=== PATIENT | female | born 1950 | race Caucasian/White ===

== ENCOUNTER 2020-10-17 13:34 | Inpatient (IN) | payer BC, MEDICAID ==
[~2020-10-17] VITALS: Ht 149.9 cm; Wt 129.0 kg
[2020-10-17 14:13] LABS: Basophils # (auto) 0.1 10 ^3/uL (0-0.2); Basophils % (auto) 0.4 % (0.0-2.0); Eosinophils # (auto) 0.2 10 ^3/uL (0-0.8); Eosinophils % (auto) 1.4 % (0.0-7.0); Hematocrit 36.2 % (36.0-46.0); Lymphocytes # (auto) 1.3 10 ^3/uL (0.4-5.4); Lymphocytes % (auto) 7.8 % (10.0-50.0); Mean Corpuscular Hemoglobin 30.9 pg (28.0-32.0); Mean Corpuscular Hgb Conc. 33.2 g/dL (32.0-36.0); Mean Corpuscular Volume 93.2 fL (80.0-100.0); Monocytes # (auto) 0.8 10 ^3/uL (0-1.3); Monocytes % (auto) 4.6 % (0.0-12.0); Neutrophils % (auto) 85.8 % (37.0-80.0); Nucleated Red Blood Cells % 0.1 %; Red Blood Cells 3.88 10^6/uL (4.0-5.20); Red Cell Distribution Width 13.6 % (11.8-14.3); White Blood Cell 16.4 10^3/uL (4.4-10.8)
[2020-10-17] MEDS ORDERED: PROMETHAZINE HCL 25 MG/ML 1ML IV PRN (14:15)
[2020-10-17] MEDS ORDERED: HYDROmorphone HCL 2 MG/ML VL IV ONE (14:15)
[2020-10-17] MEDS ORDERED: SODIUM CHLORIDE 0.9% 1,000 ML IV ONE (14:15)
[2020-10-17 14:27] LABS: Anion Gap 7 (5-15); Blood Urea Nitrogen 30 mg/dL (7-18); Carbon Dioxide 24 mmol/L (21-32); Chloride 109 mmol/L (98-107); Glucose 108 mg/dL (74-106); Potassium 3.7 mmol/L (3.5-5.1); Sodium 140 mmol/L (136-145)
[2020-10-17 14:28] LABS: Albumin 2.9 g/dL (3.4-5.0); Amylase 47 U/L (25-115); BUN/Creatinine Ratio 18.8; Calcium 8.4 mg/dL (8.5-10.1); GFR African American 41 mL/min; GFR Non-African American 34 mL/min; Lipase 104 U/L (73-393); Magnesium 1.8 mg/dL (1.6-2.6)
[2020-10-17 14:32] LABS: Alanine Aminotransferase 13 U/L (13-56); Alkaline Phosphatase 67 U/L (45-117); Aspartate Aminotransferase 12 U/L (15-37); Bilirubin, Total 0.5 mg/dL (0.2-1.0)
[2020-10-17 15:22] LABS: INR 1.08 (0.9-1.15); Partial Thromboplastin Time 29.9 sec (23.0-31.2)
[2020-10-17] MEDS ORDERED: metroNIDAZOLE 500MG/100ML 100 ML IV ONE (15:45)
[2020-10-17] MEDS ORDERED: cefTRIAXone 1GM/50ML D5W 50 ML IV ONE (15:45)
[2020-10-17] MEDS ORDERED: DOCUSATE SOD 100 MG CAP PO PRN (17:15)
[2020-10-17] MEDS ORDERED: ONDANSETRON HCL 4 MG/2 ML VIAL IV PRN (17:15)
[2020-10-17] MEDS ORDERED: NITROGLYCERIN 0.4 MG SL TAB SL PRN (17:15)
[2020-10-17] MEDS ORDERED: HYDROcodone-ACET 5/325MG TAB PO PRN (17:15)
[2020-10-17] MEDS ORDERED: ACETAMINOPHEN 500 MG TAB PO PRN (17:15)
[2020-10-17] MEDS ORDERED: MORPHINE SULFATE INJECTION 2 MG/ML SYRG IV PRN ×2 (17:15)
[2020-10-17] MEDS: SODIUM CHLORIDE 0.9% 1,000 ML IV SCH (17:38)
[2020-10-17] MEDS: metroNIDAZOLE 500MG/100ML 100 ML IV SCH (20:01)
[2020-10-17 20:50] VITALS: BP 110/69
[2020-10-18] VITALS (7 sets, daily range): BP systolic 107–136; BP diastolic 50–71
[2020-10-18] MEDS ORDERED: NITR100C6 PO (01:17)
[2020-10-18] MEDS ORDERED: LORA-622 PO (01:17)
[2020-10-18] MEDS ORDERED: SIMV-13 PO (01:17)
[2020-10-18] MEDS ORDERED: LEVO175T2 PO (01:17)
[2020-10-18] MEDS ORDERED: FLUO-125 PO (01:17)
[2020-10-18] MEDS ORDERED: LOSA-39 PO (01:17)
[2020-10-18] MEDS: SODIUM CHLORIDE 0.9% 1,000 ML IV SCH ×2 (01:28→08:25)
[2020-10-18] MEDS: metroNIDAZOLE 500MG/100ML 100 ML IV SCH ×2 (06:24→14:07)
[2020-10-18] MEDS ORDERED: LEVOTHYROXINE SODIUM 100 MCG TAB PO SCH (07:00)
[2020-10-18] MEDS ORDERED: cefTRIAXone 1GM/50ML D5W 50 ML IV SCH (09:00)
[2020-10-18 09:13] LABS: Urine Bacteria FEW /hpf (None Seen); Urine Blood TRACE /uL (Negative); Urine Hyaline Cast FEW /lpf (0 - 2); Urine Specific Gravity 1.013 (1.001-1.035); Urine WBC 15 /hpf (0 - 5)
[2020-10-18] MEDS ORDERED: LOSARTAN POTASSIUM 25 MG TAB PO SCH (10:00)
[2020-10-18] MEDS ORDERED: FLUoxetine HCL 20 MG CAP PO SCH (10:00)
[2020-10-18] MEDS ORDERED: FAMOTIDINE 20 MG TAB PO SCH (10:00)
[2020-10-18 11:46] LABS: Basophils # (auto) 0 10 ^3/uL (0-0.2); Basophils % (auto) 0.5 % (0.0-2.0); Eosinophils # (auto) 0.5 10 ^3/uL (0-0.8); Eosinophils % (auto) 6.3 % (0.0-7.0); Hematocrit 34.4 % (36.0-46.0); Hemoglobin 11.4 g/dL (12.2-16.2); Lymphocytes # (auto) 2.1 10 ^3/uL (0.4-5.4); Lymphocytes % (auto) 24.6 % (10.0-50.0); Mean Corpuscular Hemoglobin 31.1 pg (28.0-32.0); Mean Corpuscular Hgb Conc. 33.1 g/dL (32.0-36.0); Mean Corpuscular Volume 93.9 fL (80.0-100.0); Monocytes # (auto) 0.6 10 ^3/uL (0-1.3); Monocytes % (auto) 6.9 % (0.0-12.0); Neutrophils # (auto) 5.3 10 ^3/uL (1.6-8.6); Neutrophils % (auto) 61.7 % (37.0-80.0); Red Blood Cells 3.66 10^6/uL (4.0-5.20); Red Cell Distribution Width 13.6 % (11.8-14.3); White Blood Cell 8.7 10^3/uL (4.4-10.8)
[2020-10-18 12:05] LABS: Calcium 8.2 mg/dL (8.5-10.1); Potassium 3.6 mmol/L (3.5-5.1)
[2020-10-18 12:07] LABS: BUN/Creatinine Ratio 16.8
== END 2020-10-18 16:55 | disposition home or self-care (01) | DRG 871 ==
LOC: EDBD 13:34 → ER 13:34 → TELE 17:13 → TELE-EAST 20:50 → TELE-CENTR 10-18 16:08
PROVIDERS: ADMIT Nurse Practitioner Acute Care; ATTEND Internal Medicine
DX: A41.9 Sepsis, unspecified organism (principal); N17.0 Acute kidney failure with tubular necrosis; E44.0 Moderate protein-calorie malnutrition; K57.32 Diverticulitis of large intestine without perforation or abscess without bleeding; N39.0 Urinary tract infection, site not specified; E11.22 Type 2 diabetes mellitus with diabetic chronic kidney disease; Z20.822 Contact with and (suspected) exposure to COVID-19; F32.9 Major depressive disorder, single episode, unspecified; M10.9 Gout, unspecified; E03.9 Hypothyroidism, unspecified; E66.9 Obesity, unspecified; E78.5 Hyperlipidemia, unspecified; I12.9 Hypertensive chronic kidney disease with stage 1 through stage 4 chronic kidney disease, or unspecified chronic kidney disease; J45.909 Unspecified asthma, uncomplicated; N18.9 Chronic kidney disease, unspecified; Z85.850 Personal history of malignant neoplasm of thyroid; Z90.49 Acquired absence of other specified parts of digestive tract; Z68.35 Body mass index [BMI] 35.0-35.9, adult
CPT/HCPCS: 36415; 71046; 74176; 80048; 80053; 81001; 82150; 83690; 83735; 84443; 84484; 85025; 85610; 85730; 87426; 93005; 96361; 96365; 96375; G0378; J0696; J3490

== ENCOUNTER 2022-07-29 16:40 | Emergency (ER) | payer OTHER, MEDICAID ==
[~2022-07-29] VITALS: Ht 157.5 cm; Wt 110.0 kg
[~2022-07-29 16:40] MED LIST: FLUO-125 PO; LEVO175T2 PO; LORA-622 PO; LOSA-39 PO; NITR100C6 PO; SIMV-13 PO
[2022-07-29 19:51] LABS: Basophils # (auto) 0.1 10 ^3/uL (0-0.2); Eosinophils # (auto) 0.5 10 ^3/uL (0-0.8); Hemoglobin 13.5 g/dL (12.2-16.2); Lymphocytes # (auto) 3.5 10 ^3/uL (0.4-5.4); Mean Corpuscular Hemoglobin 29.8 pg (28.0-32.0); Mean Corpuscular Hgb Conc. 32.1 g/dL (32.0-36.0); Mean Corpuscular Volume 93.1 fL (80.0-100.0); Monocytes # (auto) 0.6 10 ^3/uL (0-1.3); Monocytes % (auto) 7.1 % (0.0-12.0); Neutrophils # (auto) 4.3 10 ^3/uL (1.6-8.6); Neutrophils % (auto) 47.9 % (37.0-80.0); Nucleated Red Blood Cells % 0.2 %; Red Blood Cells 4.51 10^6/uL (4.0-5.20); Red Cell Distribution Width 13.6 % (11.8-14.3)
[2022-07-29 20:05] LABS: Albumin 3.4 g/dL (3.4-5.0); BUN/Creatinine Ratio 28.5; Calcium 9.6 mg/dL (8.5-10.1); Potassium 3.9 mmol/L (3.5-5.1)
[2022-07-29 20:07] LABS: Bilirubin, Total 0.3 mg/dL (0.2-1.0); Total Protein 6.9 g/dL (6.4-8.2)
[2022-07-29] MEDS ORDERED: cloNIDine HCL 0.1 MG TAB PO ONE (20:30)
[2022-07-29 22:45] VITALS: BP 157/63
== END 2022-07-29 23:35 | disposition home or self-care (01) ==
LOC: EDBD 16:40 → ER 16:40
DX: I10 Essential (primary) hypertension (principal); E78.5 Hyperlipidemia, unspecified; E11.9 Type 2 diabetes mellitus without complications; Z90.89 Acquired absence of other organs; Z79.899 Other long term (current) drug therapy
CPT/HCPCS: 36415; 74176; 80053; 84484; 85025

== ENCOUNTER 2024-08-17 06:46 | Emergency (ER) | payer OTHER, MEDICAID ==
[~2024-08-17] VITALS: Ht 167.6 cm; Wt 132.0 kg
[~2024-08-17 06:46] MED LIST changes: +ARIP10TA29 PO; +ASPI-543 PO; +CHOL50007 PO; +LEVO175T4 PO; -LOSA-39 PO; +LOSA-535 PO; +METAPOW IN; +OXYB10TA14 PO; -SIMV-13 PO; +SIMV40TA18 PO; +TRIA1CAP5 PO
[2024-08-17 08:19] VITALS: BP 124/76; TEMP 97.5
--- NOTE | 2024-08-17 08:30 | ED.PDOC ---
Musculoskeletal HPI Comments 74Y F with PMHx DM, HTN, HLD, CA, gout, arthritis, and thyroidectomy presents to ED via EMS for chief complaint general weakness x2days with bilateral knee pain, RLE/rt hip pain, left shoulder pain, and lower back pain s/p falls. Pt denies LOC. Pt states she has had 2 falls in the last two days due to "knees giving out ". Pt lives with roommates and a culinary manager comes to her home for a few hours every week. Pt states she feels safe at home. Pt uses a walker and cane to ambulate. Chief Complaint: General Weakness Time Seen by MD: 08:15 Primary Care Provider: NONE Reviewed Notes: Nurses Notes, Medications, Allergies Allergies: Coded Allergies: NO KNOWN ALLERGIES (Unverified , 04/10/16) Home Meds Reported Medications Loratadine (Claritin) 10 Mg Tab, 1 TAB PO DAILY, #30 TAB 5 Refills 10/18/20 Losartan Potassium (Losartan Potassium) 100 Mg Tab, 100 MG PO DAILY for 30 Days, MG 10/18/20 Levothyroxine Sodium (Synthroid) 175 Mcg Tab, 1 TAB PO DAILY, #30 TAB 5 Refills 10/18/20 Nitrofurantoin Monohyd Macro (Nitrofurantoin Monohydrat) 100 Mg Cap, 100 MG PO BID, CAP 10/18/20 Simvastatin (Simvastatin) 40 Mg Tab, 40 MG PO DAILY for 30 Days 10/18/20 Fluoxetine Hcl (Fluoxetine Hcl) 20 Mg Cap, 80 MG PO DAILY for 30 Days, MG 10/18/20 Metaproterenol Sulfate (Metaproterenol Sulfate) Sulfate Pow, 2 PUFF IN PRN, POW 01/07/19 Cholecalciferol (VITAMIN D3) 5,000 Unit Cap, 5000 UNIT PO DAILY, CAP 01/07/19 Fluoxetine Hcl (Fluoxetine Hcl) 20 Mg Cap, 4 TAB PO DAILY for 30 Days, MG 01/07/19 Levothyroxine Sodium (Levothyroxine Sodium) 175 Mcg Tab, 175 MCG PO QAM for 30 Days, MCG 01/07/19 Oxybutynin Chloride (Ditropan Xl) 10 Mg Tab, 10 MG PO BID, TAB 01/07/19 Triamterene (Dyrenium) 50 Mg Cap, 37.5 MG PO DAILY, CAP 01/07/19 Aspirin (Aspir-Low) 81 Mg Tab, 81 MG PO DAILY for 30 Days, MG 01/07/19 Aripiprazole (Aripiprazole) 10 Mg Tab, 10 MG PO DAILY, TAB 01/07/19 Simvastatin (Simvastatin) 40 Mg Tab, 40 MG PO DAILY for 30 Days 01/07/19 Loratadine (Claritin) 10 Mg Tab, 1 TAB PO DAILY, #30 TAB 5 Refills 01/07/19 Information Source: Patient, Emergency Med Personnel Mode of Arrival: EMS Brought in by: EMS Extremity Location: Back (lower), Hip (right), Knee (bilateral), Leg (right), Shoulder (left) Timing: Days Prehospital treatment: None Severity: Mild Able to Move Extremity: Yes Bear Weight: Limited Pain: Mild Mechanism: Unknown Circumstances: Fall Onset of Symptoms: After Trauma Symptoms: Pain DVT Risk Factors: NONE History of: Gout, Arthritis Associated signs and symptoms: Shoulder pain (left), Knee pain (bilateral), Leg pain (right), Hip pain (right) Past Medical History PAST MEDICAL HISTORY: Arthritis, Cancer, DM, Gout, High Lipids, HTN, Thyroid Surgical History: Thyroidectomy [employer] History: No Pertinent [employer] History Family History Family History: Reviewed,noncontributory to illness Social History Smoker: Non-Smoker Alcohol: Denies ETOH Use Drugs: Denies Drug Use Lives In: Home Constitutional: reports: weakness; denies: chills, diaphoresis, fatigue, fever, malaise, sweats, others EENTM: denies: blurred vision, double vision, ear bleeding, ear discharge, ear drainage, ear pain, ear ringing, eye pain, eye redness, hearing loss, mouth pain, mouth swelling, nasal discharge, nose bleeding, nose congestion, nose leeanne n, photophobia, tearing, throat pain, throat swelling, voice changes, others Respiratory: denies: cough, hemoptysis, orthopnea, SOB at rest, shortness of breath, SOB with excertion, stridor, wheezing, others Cardiovascular: denies: chest pain, dizzy spells, diaphoresis, Dyspnea on exertion, edema, irregular heart beat, left arm pain, lightheadedness, palpitations, PND, syncope, others Gastrointestinal: denies: abdomen distended, abdominal pain, blood streaked bowels, constipated, diarrhea, dysphagia, difficulty swallowing, hematemesis, melena, nausea, poor appetite, poor fluid intake, rectal bleeding, rectal pain, vomiting, others Genitourinary: denies: abnormal vagina bleeding, burning, dyspareunia, dysuria, flank pain, frequency, hematuria, incontinence, pain, , vagina discharge, urgency, others Neurological: denies: dizziness, fainting, headache, left sided numbness, left sided weakness, numbness, paresthesia, pre-existing deficit, right sided numbness, right sided weakness, seizure, speech problems, tingling, tremors, weakness, others Musculoskeletal: reports: back pain, others (lt shoulder pain, RLE pain, bilateral knee pain); denies: gout, joint pain, joint swelling, muscle pain, muscle stiffness, neck pain Integumetry: denies: bruises, change in color, change in hair/nails, dryness, laceration, lesions, lumps, rash, wounds, others Allergic/Immunocompromised: denies: Difficulty Healing, Frequent Infections, H bernie, Itching, others Hematologic/Lymphatic: denies: anemia, blood clots, easy bleeding, easy bruising, swollen glands, others Endocrine: denies: excessive hunger, excessive sweating, excessive thirst, excessive urination, flushing, intolerance to cold, intolerance to heat, unexplained weight gain, unexplained weight loss, others Psychiatric: denies: anxiety, bipolar disorder, depression, hopeless, panic disorder, schizophrenia, sleepless, suicidal, others All Other Systems: Reviewed and Negative Physical Exam General Appearance: No Apparent Distress, Normal HEENT: Normal ENT Inspection, Pharynx Normal, TMs Normal Neck: Full Range of Motion, Non-Tender, Normal, Normal Inspection Respiratory: Chest Non-Tender, Lungs Clear, No Accessory Muscle Use, No Respiratory Distress, Normal Breath Sounds Cardiovascular: No Edema, No JVD, No Murmur, No Gallop, Normal Peripheral Pulses, Regular Rate/Rhythm Breast Exam: Deferred Gastrointestinal: No Organomegaly, Non Tender, No Pulsatile Mass, Normal Bowel Sounds, Soft Genitalia: Deferred Pelvic: Deferred Rectal: Deferred Extremities: No calf tenderness, Normal capillary refill, Normal inspection, Normal range of motion, Non-tender, No pedal edema Musculoskeletal : Apperance: Normal Neurologic: Alert, position classification specialist II-XII nml as Tested, No Motor Deficits, Normal Affect, Normal Mood, No Sensory Deficits Cerebellar Function: Normal Reflexes: Normal Skin: Dry, Normal Color, Warm Lymphatic: No Adenopathy Was a procedure done? Was a procedure done?: No Differential Diagnosis EXT Differential Diagnosis: Fracture, Sprain, Dislocation, Contusion, Strain X-Ray, Labs, Meds, VS Vital Signs Date Time Temp Pulse Resp B/P (MAP) Pulse Ox O2 Delivery O2 Flow Rate FiO2 08/17/24 09:08 63 20 98 Room Air* 0 21 08/17/24 08:19 63 20 98 Room Air 08/17/24 08:19 97.5 63 20 124/76 (92) 98 97.5 08/17/24 08:00 55 08/17/24 07:00 97.5 108 18 156/86 (109) 97 [place] [id number] Ph: [phone] DIAGNOSTIC IMAGING Diagnostic Imaging Report : [id number] Signed PATIENT: CELSA SKINNERACCT: [id number] UNIT: [id number] : 1950 LOC: ER ROOM / BED: / AGE / SEX: 74 / F ADM STATUS: REG ER SERVICE 8 ORDERING PHYSICIAN: CARMEL COTA MD PROCEDURE(s): LSHD2 - L SHOULDER 2+ VIEW XRAY REASON: falling ORDER NUMBER(s): [id number], ACCESSION NUMBER(s): [id number] EXAM: XY L SHOULDER 2+ VIEW XRAY CLINICAL INDICATION: falling TECHNIQUE: XY L SHOULDER 2+ VIEW XRAY Comparison: None FINDINGS/IMPRESSION: There is no evidence of acute fracture or dislocation. The visualized joint space is well maintained. The alignment is anatomical. There is no radiopaque foreign body. ATED BY: SHAMAR RICHEY MD DICTATED DATE/TIME: 08/17/24910 SIGNED BY: SHAMAR RICHEY MD SIGNED DATE/TIME: 08/17/24910 CC: [place] [id number] Ph: [phone] DIAGNOSTIC IMAGING Diagnostic Imaging Report : [id number] Signed PATIENT: CELSA SKINNERACCT: [id number] UNIT: [id number] : 1950 LOC: ER ROOM / BED: / AGE / SEX: 74 / F ADM STATUS: REG ER SERVICE 8 ORDERING PHYSICIAN: CARMEL COTA MD PROCEDURE(s): LUMB2 - LUMBAR SPINE 3 VIEW REASON: falling ORDER NUMBER(s): [id number], ACCESSION NUMBER(s): [id number] INDICATION: falling COMPARISON: None TECHNIQUE: 5 views of the lumbar spine were obtained. FINDINGS: The lumbar vertebral alignment is normal. Multilevel degenerative changes most severe at L4-L5 through L5-S1 with moderate neural foraminal and spinal canal stenosis. No acute fracture, vertebral compression deformity or aggressive osseous lesions. The paravertebral soft tissues are grossly unremarkable. IMPRESSION: No acute fracture. ATED BY: SHAMAR RICHEY MD DICTATED DATE/TIME: 08/17/24909 SIGNED BY: SHAMAR RICHEY MD SIGNED DATE/TIME: 08/17/24909 CC: [place] [id number] Ph: [phone] DIAGNOSTIC IMAGING Diagnostic Imaging Report : [id number] Signed PATIENT: CELSA SKINNERACCT: [id number] UNIT: [id number] : 1950 LOC: ER ROOM / BED: / AGE / SEX: 74 / F ADM STATUS: REG ER SERVICE 8 ORDERING PHYSICIAN: CARMEL COTA MD PROCEDURE(s): LKNE2 - L KNEE 2V XRAY REASON: falling ORDER NUMBER(s): [id number], ACCESSION NUMBER(s): [id number] EXAM: XY L KNEE 2V XRAY CLINICAL INDICATION: falling TECHNIQUE: XY L KNEE 2V XRAY Comparison: None FINDINGS/IMPRESSION: There is no evidence of acute fracture or dislocation. Advanced left knee osteoarthritis. The alignment is anatomical. There is no radiopaque foreign body. ATED BY: SHAMAR RICHEY MD DICTATED DATE/TIME: 08/17/24907 SIGNED BY: SHAMAR RICHEY MD SIGNED DATE/TIME: 08/17/24907 CC: [place] [id number] Ph: [phone] DIAGNOSTIC IMAGING Diagnostic Imaging Report : [id number] Signed PATIENT: CELSA SKINNERT: [id number] UNIT: [id number] : 1950 LOC: ER ROOM / BED: / AGE / SEX: 74 / F ADM STATUS: REG ER SERVICE 8 ORDERING PHYSICIAN: CARMEL COTA MD PROCEDURE(s): RKNE2 - R KNEE 2V XRAY REASON: falling ORDER NUMBER(s): [id number], ACCESSION NUMBER(s): [id number] EXAM: XY R KNEE 2V XRAY CLINICAL INDICATION: falling TECHNIQUE: XY R KNEE 2V XRAY Comparison: None FINDINGS/IMPRESSION: There is no evidence of acute fracture or dislocation. Advacned left knee osteoarthritis. The alignment is anatomical. There is no radiopaque foreign body. ATED BY: SHAMAR RICHEY MD DICTATED DATE/TIME: 08/17/24908 SIGNED BY: SHAMAR RICHEY MD SIGNED DATE/TIME: 08/17/24908 CC: [place] [id number] Ph: [phone] DIAGNOSTIC IMAGING Diagnostic Imaging Report : [id number] Signed PATIENT: CELSA SKINNERACCT: [id number] UNIT: [id number] : 1950 LOC: ER ROOM / BED: / AGE / SEX: 74 / F ADM STATUS: REG ER SERVICE 8 ORDERING PHYSICIAN: CARMEL COTA MD PROCEDURE(s): RHIP - R HIP COMPLETE XRAY REASON: falling ORDER NUMBER(s): [id number], ACCESSION NUMBER(s): [id number] EXAM: XY R HIP COMPLETE XRAY CLINICAL INDICATION: falling TECHNIQUE: XY R HIP COMPLETE XRAY, 3 views Comparison: None FINDINGS/IMPRESSION: There is no evidence of acute fracture or dislocation. The visualized joint space is well maintained. The alignment is anatomical. There is no radiopaque foreign body. ATED BY: SHAMAR RICHEY MD DICTATED DATE/TIME: 08/17/24910 SIGNED BY: SHAMAR RICHEY MD SIGNED DATE/TIME: 08/17/24910 CC: Time of 1ST Reevaluation: 08:45 Reevaluation 1ST: Unchanged Time of 2ND Reevaluation: 09:57 Reevaluation 2ND: Improved Patient Education/Counseling: Diagnosis, Treatment Family Education/Counseling: No Family Present Additional Information I reviewed the following notes from patient's past medical encounters: [facility] ER 07/29/2022, 04/10/2016; [facility] discharge 10/18/2020 The following tests were ordered, and results were reviewed by me: EKG, L-spine x-ray, Rt hip x-ray, Lt shoulder x-ray, bilateral knee x-ray Additional Information was gathered from interviewing the following independent historians: EMS. I reviewed and agreed with the following test results read by other providers: L-spine x-ray, Rt hip x-ray, Lt shoulder x-ray, bilateral knee x-ray I discussed treatment and results with medical personnel. pt declined to be considered for placement or admission. she lives with friends who can care for her. she also has home health to help her a few hours a day. i will consult [facility] to have home health to go out to reassess to provide safety eval and possibly more home health assists Departure 1 Departure Time of Disposition: 09:59 Impression: Primary Impression: Falling Additional Impressions: Back strain Knee contusion Left shoulder strain Disposition: HOME / SELF CARE / HOMELESS Condition: Good Discharged With: Self Critical Care Note Critical Care Time?: No Stability Stability form required: No Heart Score Heart Score: Heart Score Response (Comments) Value History N/A 0 EKG N/A 0 Age N/A 0 Risk Factors N/A 0 Troponin N/A 0 Total 0 I personally scribed [facility]EL COTA [facility] on 08/17/24 at 08:30. Electronically submitted by Erica Wallace ([facility]). I personally scribed for CARMEL COTA MD ([facility]) on 08/17/24 at 09:30. Elec tronically submitted by Erica Wallace ([facility]). CARMEL COTA MD Aug 17, 2024 08:30
[2024-08-17 09:08] VITALS: PULSE 63; RESP 20; O2SAT 98
--- NOTE | 2024-08-17 09:11 | DVH ---
EXAM: XY L KNEE 2V XRAY CLINICAL INDICATION: falling TECHNIQUE: XY L KNEE 2V XRAY Comparison: None FINDINGS/IMPRESSION: There is no evidence of acute fracture or dislocation. Advanced left knee osteoarthritis. The alignment is anatomical. There is no radiopaque foreign body.
--- NOTE | 2024-08-17 09:12 | DVH ---
EXAM: XY R KNEE 2V XRAY CLINICAL INDICATION: falling TECHNIQUE: XY R KNEE 2V XRAY Comparison: None FINDINGS/IMPRESSION: There is no evidence of acute fracture or dislocation. Advacned left knee osteoarthritis. The alignment is anatomical. There is no radiopaque foreign body.
--- NOTE | 2024-08-17 09:13 | DVH ---
EXAM: XY R HIP COMPLETE XRAY CLINICAL INDICATION: falling TECHNIQUE: XY R HIP COMPLETE XRAY, 3 views Comparison: None FINDINGS/IMPRESSION: There is no evidence of acute fracture or dislocation. The visualized joint space is well maintained. The alignment is anatomical. There is no radiopaque foreign body.
--- NOTE | 2024-08-17 09:13 | DVH ---
INDICATION: falling COMPARISON: None TECHNIQUE: 5 views of the lumbar spine were obtained. FINDINGS: The lumbar vertebral alignment is normal. Multilevel degenerative changes most severe at L4-L5 through L5-S1 with moderate neural foraminal and spinal canal stenosis. No acute fracture, vertebral compression deformity or aggressive osseous lesions. The paravertebral soft tissues are grossly unremarkable. IMPRESSION: No acute fracture.
--- NOTE | 2024-08-17 09:14 | DVH ---
EXAM: XY L SHOULDER 2+ VIEW XRAY CLINICAL INDICATION: falling TECHNIQUE: XY L SHOULDER 2+ VIEW XRAY Comparison: None FINDINGS/IMPRESSION: There is no evidence of acute fracture or dislocation. The visualized joint space is well maintained. The alignment is anatomical. There is no radiopaque foreign body.
--- NOTE | 2024-08-17 18:48 | ECG ---
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
== END 2024-08-17 11:53 | disposition home or self-care (01) ==
LOC: ER 06:46
DX: S39.012A Strain of muscle, fascia and tendon of lower back, initial encounter (principal); S46.912A Strain of unspecified muscle, fascia and tendon at shoulder and upper arm level, left arm, initial encounter; S80.01XA Contusion of right knee, initial encounter; S80.02XA Contusion of left knee, initial encounter; E11.9 Type 2 diabetes mellitus without complications; E78.5 Hyperlipidemia, unspecified; I10 Essential (primary) hypertension; E03.9 Hypothyroidism, unspecified; Z79.899 Other long term (current) drug therapy; Z79.84 Long term (current) use of oral hypoglycemic drugs; Z98.890 Other specified postprocedural states
CPT/HCPCS: 72100; 73030; 73502; 73560; 82962; 93005